=== PATIENT | female | born 1935 | race Two or more races ===

== ENCOUNTER 2022-06-07 10:34 | Inpatient (IN) | payer OTHER ==
[~2022-06-07] VITALS: Ht 170.2 cm; Wt 62.6 kg
[2022-06-07 11:34] LABS: BASOPHILS % 0.1 % (0.0-2.0); EOSINOPHILS % 0.2 % (0.0-5.0); HEMATOCRIT. 34.9 % (36.0-48.0); LYMPHOCYTES % 20.3 % (20.0-50.0); MEAN CORPUSCULAR HEMOGLOBIN 33.3 pg (28.0-32.0); MEAN PLATELET VOLUME 6.5 fl (7.4-10.4); MONOCYTES % 6.6 % (2.0-8.0); NEUTROPHILS % 72.8 % (40.0-76.0); PLATELET 227 x1000/uL (130-400)
[2022-06-07 11:42] LABS: CHLORIDE 95 mEq/L (98-107)
[2022-06-07] MEDS ORDERED: IOHEXOL-350 100 ML BOTTLE ONE (11:54)
[2022-06-07 11:56] LABS: ETHANOL BLOOD < 10 mg/dL
[2022-06-07 12:52] LABS: CLARITY URINE CLEAR (CLEAR); COLOR URINE YELLOW (YELLOW); KETONES URINE NEGATIVE (NEGATIVE); LEUKOCYTE ESTERASE URINE NEGATIVE (NEGATIVE); NITRITE URINE NEGATIVE (NEGATIVE); OCCULT BLOOD URINE TRACE (NEGATIVE); PH URINE 6.5 (4.5-8.0); PROTEIN URINE NEGATIVE (NEGATIVE); SPECIFIC GRAVITY URINE 1.047 (1.005-1.030); UROBILINOGEN URINE 0.2 E.U./dL (0.2-1.0)
[2022-06-07 13:41] LABS: *AMPHETAMINES SCREEN URINE NEGATIVE (NEGATIVE); *BARBITURATES SCREEN URINE NEGATIVE (NEGATIVE); *BENZODIAZEPINES SCREEN URINE NEGATIVE (NEGATIVE); *COCAINE SCREEN URINE NEGATIVE (NEGATIVE); CANNABINOID URINE SCREEN NEGATIVE (NEGATIVE); METHADONE URINE SCREEN NEGATIVE (NEGATIVE); OPIATES URINE SCREEN NEGATIVE (NEGATIVE); PHENCYCLIDINE URINE SCREEN NEGATIVE (NEGATIVE)
[2022-06-07] MEDS ORDERED: ASPIRIN 325MG EC TABLET PO ONE (14:30)
[2022-06-07] MEDS ORDERED: ASPIRIN 325MG EC TABLET PO NR (16:45)
[2022-06-07] MEDS ORDERED: POTASSIUM CHLORIDE 10MEQ TABLET SR PO ONE (17:00)
[2022-06-07] MEDS ORDERED: MAGNESIUM/ALUMINUM HYDROXIDE/SIMETHICONE 30ML UDC PO PRN (19:30)
[2022-06-07] MEDS ORDERED: ACETAMINOPHEN 325MG TABLET PO PRN (19:30)
[2022-06-07] MEDS ORDERED: HYDROCODONE/ACETAMINOPHEN 5/325MG TABLET PO PRN (19:30)
[2022-06-07] MEDS ORDERED: CLONIDINE 0.1MG TABLET PO PRN (19:30)
[2022-06-07] MEDS ORDERED: DOCUSATE SODIUM 100MG CAPSULE PO PRN (19:30)
[2022-06-07] MEDS ORDERED: ONDANSETRON HCL 4MG/2ML INJ IV PRN (19:30)
[2022-06-07] MEDS ORDERED: NALOXONE HCL 0.4MG/ML VIAL IV PRN (19:45)
[2022-06-07 20:00] VITALS: BP 112/64
[2022-06-07] MEDS ORDERED: POTASSIUM CHLORIDE 20MEQ/PACKET PO NR (20:00)
[2022-06-07] MEDS: ENOXAPARIN 40MG/0.4ML SYR SUBCUT SCH (22:07)
[2022-06-08] VITALS: BP 119/71
[2022-06-08] MEDS ORDERED: TRAZ-251 PO (00:22)
[2022-06-08] MEDS ORDERED: SENN-257 MT (00:23)
[2022-06-08] MEDS ORDERED: POTA-205 PO (00:25)
[2022-06-08 04:00] VITALS: BP 127/69
[2022-06-08] MEDS ORDERED: AMLO5TAB88 MT (05:51)
[2022-06-08 05:59] LABS: BASOPHILS % 0.2 % (0.0-2.0); EOSINOPHILS % 0.3 % (0.0-5.0); HEMATOCRIT. 37.2 % (36.0-48.0); HEMOGLOBIN. 12.8 g/dL (12.0-16.0); LYMPHOCYTES % 18.9 % (20.0-50.0); MEAN CORPUSCULAR HEMOGLOBIN 33.4 pg (28.0-32.0); MEAN CORPUSCULAR VOLUME 96.7 fL (81.0-99.0); MEAN PLATELET VOLUME 6.7 fl (7.4-10.4); NEUTROPHILS % 69.6 % (40.0-76.0); PLATELET 233 x1000/uL (130-400); RED BLOOD CELL COUNT 3.85 mill/uL (4.2-5.4); RED CELL DISTRIBUTION WIDTH 13.8 % (11.6-14.6)
[2022-06-08] MEDS ORDERED: IBUP-2029 PO (06:06)
[2022-06-08 06:08] LABS: CHLORIDE 94 mEq/L (98-107)
[2022-06-08] MEDS ORDERED: DICL100G31 TP (06:10)
[2022-06-08] MEDS ORDERED: ATEN1TAB42 MT (06:14)
[2022-06-08 06:25] LABS: HDL CHOLESTEROL 69 mg/dL (40-59); LDL CHOLESTEROL 43 mg/dL (5-100); PHOSPHORUS 3.1 mg/dL (2.5-4.9); T4 FREE 1.12 ng/dL (0.76-1.46)
[2022-06-08] MEDS ORDERED: SIMV-43 PO (07:34)
[2022-06-08] MEDS ORDERED: LIDO700A30 TP (07:34)
[2022-06-08] MEDS ORDERED: LEVO25TA7 MT (07:34)
[2022-06-08] MEDS ORDERED: MULT-1146 MT (07:34)
[2022-06-08] MEDS ORDERED: OMEG1200 PO (07:34)
[2022-06-08 08:00] VITALS: BP 142/67
[2022-06-08] MEDS ORDERED: POTASSIUM CHLORIDE INJ 40 MEQ in DEXT 5% WATER 250 ML IV ONE (10:30)
[2022-06-08] MEDS ORDERED: POTASSIUM CHLORIDE 20MEQ/PACKET PO NR (10:45)
[2022-06-08] MEDS ORDERED: DIAZEPAM 5 MG/ML 2ML CPJ IV NR (11:45)
[2022-06-08 12:00] VITALS: BP 102/64
[2022-06-08] MEDS ORDERED: KCL 20MEQ/100ML X 2 FOR TOTAL KCL 40MEQ/200ML IV SCH (12:00)
[2022-06-08 16:00] VITALS: BP 136/55
[2022-06-08] MEDS ORDERED: POTASSIUM CHLORIDE 20MEQ TABLET SR PO NR (17:15)
[2022-06-08 20:00] VITALS: BP 133/78
[2022-06-08] MEDS: ATORVASTATIN CALCIUM 10MG TABLET PO SCH (21:52)
[2022-06-08] MEDS: ENOXAPARIN 40MG/0.4ML SYR SUBCUT SCH (21:53)
[2022-06-09] VITALS: BP 129/71
[2022-06-09 04:00] VITALS: BP 148/79
[2022-06-09 08:00] VITALS: BP 125/69
[2022-06-09] MEDS ORDERED: ASPIRIN 81MG TABLET PO SCH (09:00)
[2022-06-09 12:00] VITALS: BP 116/70
[2022-06-09] MEDS ORDERED: CEFTRIAXONE 2 G PREMIX 50 ML IV SCH (12:45)
[2022-06-09] MEDS: CEFTRIAXONE 2 G in DEXTROSE 5% WATER 50 ML IV SCH (14:49)
[2022-06-09 16:00] VITALS: BP 133/62
[2022-06-09 17:58] LABS: BASOPHILS % 0.3 % (0.0-2.0); EOSINOPHILS % 1.1 % (0.0-5.0); HEMATOCRIT. 38.2 % (36.0-48.0); LYMPHOCYTES % 32.9 % (20.0-50.0); MEAN CORPUSCULAR HEMOGLOBIN 33.1 pg (28.0-32.0); MEAN CORPUSCULAR VOLUME 97.3 fL (81.0-99.0); MEAN PLATELET VOLUME 6.5 fl (7.4-10.4); MONOCYTES % 11.4 % (2.0-8.0); NEUTROPHILS % 54.3 % (40.0-76.0); PLATELET 250 x1000/uL (130-400); RED BLOOD CELL COUNT 3.93 mill/uL (4.2-5.4); RED CELL DISTRIBUTION WIDTH 13.9 % (11.6-14.6)
[2022-06-09] MEDS: THIAMINE HCL 100MG TABLET PO SCH (18:09)
[2022-06-09 18:14] LABS: CHLORIDE 93 mEq/L (98-107)
[2022-06-09 20:00] VITALS: BP 109/77
[2022-06-09] MEDS ORDERED: THIAMINE HCL 100 MG in SODIUM CHLORIDE 0.9% 49 ML IV NR (20:00)
[2022-06-09] MEDS: ATORVASTATIN CALCIUM 10MG TABLET PO SCH (21:23)
[2022-06-09] MEDS: ENOXAPARIN 40MG/0.4ML SYR SUBCUT SCH (21:24)
[2022-06-10] VITALS: BP 139/7
[2022-06-10] MEDS ORDERED: VANCOMYCIN 1.25GM PMX (XELLIA) 250 ML IV NR (01:00)
[2022-06-10] MEDS ORDERED: VANCOMYCIN 1250MG in DEXTROSE 5% WATER 250ML IV NR (01:30)
[2022-06-10 04:00] VITALS: BP 131/74
[2022-06-10 06:40] LABS: BASOPHILS % 0.1 % (0.0-2.0); EOSINOPHILS % 1.6 % (0.0-5.0); HEMATOCRIT. 37.2 % (36.0-48.0); HEMOGLOBIN. 12.9 g/dL (12.0-16.0); LYMPHOCYTES % 31.4 % (20.0-50.0); MEAN CORPUSCULAR HEMOGLOBIN 33.3 pg (28.0-32.0); MEAN CORPUSCULAR VOLUME 96.2 fL (81.0-99.0); NEUTROPHILS % 57.9 % (40.0-76.0); PLATELET 243 x1000/uL (130-400); RED BLOOD CELL COUNT 3.86 mill/uL (4.2-5.4); RED CELL DISTRIBUTION WIDTH 13.6 % (11.6-14.6)
[2022-06-10 07:01] LABS: CHLORIDE 95 mEq/L (98-107)
[2022-06-10 08:00] VITALS: BP 152/76
[2022-06-10] MEDS: THIAMINE HCL 100MG TABLET PO SCH (08:18)
[2022-06-10 12:00] VITALS: BP 123/67
[2022-06-10] MEDS: CEFTRIAXONE 2 G in DEXTROSE 5% WATER 50 ML IV SCH (15:27)
[2022-06-10 16:00] VITALS: BP 160/77
[2022-06-10 20:00] VITALS: BP 129/89
[2022-06-10] MEDS: ENOXAPARIN 40MG/0.4ML SYR SUBCUT SCH (20:30)
[2022-06-10] MEDS: ATORVASTATIN CALCIUM 10MG TABLET PO SCH (20:30)
[2022-06-11] VITALS: BP 120/71
[2022-06-11] MEDS ORDERED: VANCOMYCIN 1GM PMX (XELLIA) 200 ML IV SCH (01:00)
[2022-06-11 04:00] VITALS: BP 138/74
[2022-06-11 07:06] LABS: BASOPHILS % 0.2 % (0.0-2.0); EOSINOPHILS % 2.1 % (0.0-5.0); HEMATOCRIT. 35.7 % (36.0-48.0); HEMOGLOBIN. 12.4 g/dL (12.0-16.0); LYMPHOCYTES % 36.1 % (20.0-50.0); MEAN CORPUSCULAR HEMOGLOBIN 33.6 pg (28.0-32.0); MEAN CORPUSCULAR VOLUME 96.9 fL (81.0-99.0); MEAN PLATELET VOLUME 6.7 fl (7.4-10.4); MONOCYTES % 11.5 % (2.0-8.0); NEUTROPHILS % 50.1 % (40.0-76.0); PLATELET 245 x1000/uL (130-400); RED BLOOD CELL COUNT 3.69 mill/uL (4.2-5.4); RED CELL DISTRIBUTION WIDTH 13.8 % (11.6-14.6)
[2022-06-11 08:00] VITALS: BP 131/56
[2022-06-11] MEDS: THIAMINE HCL 100MG TABLET PO SCH (08:59)
[2022-06-11 09:10] LABS: ANTI-NUCLEAR ANTIBODIES DIRECT Negative (Negative); HIV SCREEN 4G Non Reactive (Non Reactive)
[2022-06-11 09:31] LABS: CHLORIDE 98 mEq/L (98-107)
[2022-06-11 12:00] VITALS: BP 120/65
[2022-06-11 16:00] VITALS: BP 136/61
[2022-06-11 20:00] VITALS: BP 121/69
[2022-06-11] MEDS: ENOXAPARIN 40MG/0.4ML SYR SUBCUT SCH (21:09)
[2022-06-11] MEDS: ATORVASTATIN CALCIUM 10MG TABLET PO SCH (21:09)
[2022-06-12] VITALS: BP 134/69
[2022-06-12 04:00] VITALS: BP 145/56
[2022-06-12 08:00] VITALS: BP 135/82
[2022-06-12] MEDS: THIAMINE HCL 100MG TABLET PO SCH (08:05)
[2022-06-12 11:46] LABS: BASOPHILS % 0.2 % (0.0-2.0); EOSINOPHILS % 1.1 % (0.0-5.0); HEMATOCRIT. 35.4 % (36.0-48.0); HEMOGLOBIN. 12.3 g/dL (12.0-16.0); LYMPHOCYTES % 28.2 % (20.0-50.0); MEAN CORPUSCULAR HEMOGLOBIN 33.6 pg (28.0-32.0); MEAN CORPUSCULAR VOLUME 96.6 fL (81.0-99.0); MEAN PLATELET VOLUME 6.9 fl (7.4-10.4); MONOCYTES % 12.2 % (2.0-8.0); NEUTROPHILS % 58.3 % (40.0-76.0); PLATELET 251 x1000/uL (130-400); RED BLOOD CELL COUNT 3.67 mill/uL (4.2-5.4); RED CELL DISTRIBUTION WIDTH 13.8 % (11.6-14.6)
[2022-06-12 12:00] VITALS: BP 138/77
[2022-06-12 12:04] LABS: CHLORIDE 101 mEq/L (98-107)
[2022-06-12 14:33] VITALS: BP 138/77
== END 2022-06-12 15:40 | disposition home or self-care (01) | DRG 72 ==
LOC: ER 10:47 → 8WST 14:31 → EDBEDREQTM 14:34 → EDBEDREQ 14:34 → ENRESERV 15:51
PROVIDERS: ADMIT Internal Medicine Pulmonary Disease; ATTEND Internal Medicine Pulmonary Disease
DX: G93.41 Metabolic encephalopathy (principal); E87.6 Hypokalemia; E78.5 Hyperlipidemia, unspecified; M48.00 Spinal stenosis, site unspecified; Z20.822 Contact with and (suspected) exposure to COVID-19; I10 Essential (primary) hypertension; R47.81 Slurred speech
CPT/HCPCS: 36415; 70496; 70498; 70551; 71045; 72148; 74176; 80048; 80053; 80061; 80076; 80305; 80320; 81003; 82140; 82962; 83735; 84100; 84145; 84439; 84443; 84484; 85025; 85651; 86038; 86140; 86592; 87389; 87426; 87899; 92523; 93005; 93970; 95816; 97162; 97166; 97530; 97535; 99291; J0696; J1650; J3370; J3411; J3480; J7060; Q9967; G0480